=== PATIENT | male | born 1970 | race Caucasian/White ===

== ENCOUNTER 2024-02-26 00:23 | Emergency (ER) | payer OTHER, SELFPAY ==
[2024-02-26] VITALS (26 sets, daily range): BP systolic 127; BP diastolic 94; PULSE 100–120; TEMP 37.1; O2SAT 98–106; BMI 23.1
--- NOTE | 2024-02-26 00:40 | ECG_ITS ---
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
--- NOTE | 2024-02-26 00:54 | ED_ITS ---
HPI - Medical Clearance General Chief complaint: Medical Clearance Stated complaint: MEDICAL CLEARANCE Time Seen by Provider: 02/26/24 00:40 Source: patient Mode of arrival: walk-in History of Present Illness HPI Narrative: This 53-year-old male with a history of liver cirrhosis and alcohol dependence is sent to the emergency department from [facility] for medical clearance. The patient states that he is checking himself in the [facility] to get help with his alcoholism. Before going to the facility he drank a bottle of vodka. Upon arrival to the facility he was noted to be too intoxicated to do their intake and he was sent to this emergency department for evaluation. The patient has what appears to be somewhat advanced cirrhosis with ascites. In addition to medical clearance he request paracentesis while he is in the emergency department. Related Information Home Medications ?Medication ?Instructions ?Recorded ?Confirmed buspirone 10 mg tablet 10 mg PO .once daily 02/26/24 02/26/24 folic acid .ROUTE 02/26/24 furosemide 40 mg tablet 40 mg PO DAILY 02/26/24 02/26/24 spironolactone 50 mg tablet 50 mg PO DAILY 02/26/24 02/26/24 Allergies Allergy/AdvReac Type Severity Reaction Status Date / Time No Known Drug Allergies Allergy Verified 02/26/24 00:36 Review of Systems ROS Status of ROS 10 or more systems reviewed and unremark able except as noted in history and below Exam Narrative Exam Narrative: Vital signs and Nursing Notes reviewed: Patient is afebrile, he is tachycardic with a pulse of 120, blood pressure is mildly elevated at 127/94, he is not hypoxic with pulse ox of 98% on room air General: Intoxicated male, no respiratory distress-patient refuses to answer my questions HEENT: Normocephalic atraumatic, mucous membranes are moist and pink, eyes are clear, normal conjunctiva Neck: Supple, no meningeal signs, no anterior or posterior cervical lymphadenopathy Chest: Lungs are clear to auscultation with good air entry, there is no wheezing rhonchi or rales appreciated no accessory muscle use, patient is speaking in complete sentences-no chest wall tenderness to palpation CVS: Regular rate and rhythm S1-S2, no murmurs rubs or gallops, pulses are brisk and equal bilaterally ABD: Softly distended with fluid wave, no rebound guarding or rigidity noted Extremities: Moving all extremities, no lower extremity tenderness or swelling noted, negative Homans' sign, pulses are brisk and equal bilaterally Skin: Normal in appearance without rash,pallor, petechiae or purpura Neuro: No focal deficits, intoxicated, ambulatory, moving all extremities Constitutional Vital Signs, click to edit/add: Last Vital Signs Temp 98.8 F 02/26/24 00:32 Pulse 103 H 02/26/24 04:30 Resp 14 02/26/24 05:22 BP 127/94 H 02/26/24 00:51 Pulse Ox 98 02/26/24 00:32 O2 Del Method Room Air 02/26/24 00:32 Course Vital Signs Vital signs: Vital Signs Temperature 98.8 F 02/26/24 00:32 Pulse Rate 120 H 02/26/24 00:32 Respiratory Rate 18 02/26/24 00:32 Blood Pressure 127/94 H 02/26/24 00:32 Pulse Oximetry 98 02/26/24 00:32 Oxygen Delivery Method Room Air 02/26/24 00:32 Temperature 98.8 F 02/26/24 00:32 Pulse Rate 103 H 02/26/24 04:30 Respiratory Rate 14 02/26/24 05:22 Blood Pressure 127/94 H 02/26/24 00:51 Pulse Oximetry 98 02/26/24 00:32 Oxygen Delivery Method Room Air 02/26/24 00:32 MDM - Medical Clearance MDM Narrative Medical decision making narrative: This 53-year-old male with a history of alcoholism and cirrhosis is brought to the emergency department from [facility] for medical clearance. The patient admits that he was checking himself into [facility] yesterday because he wants help with his alcohol use but before checking and he drank a bottle of vod ka. When they were trying to do his intake he was too intoxicated and he was sent to the emergency department. Upon arrival he was notably intoxicated. Vital signs were stable but he was tachycardic. EKG upon arrival was a sinus tachycardia. An IV was placed and he was medicated with IV fluids and routine labs were ordered. His alcohol was 402. Potassium was 2.9. The remainder of his labs were normal with the exception of a mild elevation in his liver function enzymes; AST and alk phos. Total bilirubin is normal. He was given IV fluids and 20 mill equivalents of IV potassium. He was able to sleep throughout the night and on reevaluation he is alert, eating a pop tart and drinking water without difficulty and will be given a dose of oral potassium and discharged back to [facility] for further evaluation and treatment for his alcoholism. Lab Data Attestation: I reviewed the patient's lab results. Labs: Lab Results 02/26/24 Range/Units 00:49 WBC 10.6 (4.0-11.0) 10^3/uL RBC 4.55 L (4.70-6.10) 10^6/uL Hgb 14.4 (14.0-18.0) g/dL Hct 43.3 (42.0-54.0) % MCV 95.2 H (80.0-94.0) fL MCH 31.6 (25.9-34.0) pg MCHC 33.3 (29.9-35.2) g/dL RDW 15.1 H (11.0-15.0) % Plt Count 180 (150-450) 10^3/uL MPV 9.7 (9.5-13.5) fL Neut % (Auto) 53.1 (43.0-75.0) % Lymph % (Auto) 38.2 (20.5-60.0) % Harper % (Auto) 6.1 (1.7-12.0) % Eos % (Auto) 1.2 (0.9-7.0) % Baso % (Auto) 1.0 (0.2-2.0) % Neut # (Auto) 5.6 (1.4-6.5) 10^3/uL Lymph # (Auto) 4.0 H (1.2-3.8) 10^3/uL Harper # (Auto) 0.7 (0.3-0.8) 10^3/uL Eos # (Auto) 0.1 (0.0-0.7) 10^3/uL Baso # (Auto) 0.1 (0.0-0.1) 10^3/uL Abs Immat Gran (auto) 0.04 H (0.00-0.03) 10^3/uL Imm/Tot Granulo (auto) 0.4 (0.0-0.5) % Sodium 141 (136-145) mmol/L Potassium 2.9 L* (3.5-5.1) mmol/L Chloride 99 (98-107) mmol/L Carbon Dioxide 28.6 (21.0-32.0) mmol/L Anion Gap 16.3 BUN 12.0 (7.0-18.0) mg/dL Creatinine 0.76 (0.70-1.30) mg/dL Est GFR ( Amer) >60 (>=60) Est GFR (Non-Af Amer) >60 (>=60) BUN/Creatinine Ratio 15.8 Glucose 104 (74-106) mg/dL Calcium 9.4 (8.5-10.1) mg/dL Total Bilirubin 0.8 (0.2-1.0) mg/dL AST 115 H (15-37) U/L ALT 60 (16-63) U/L Alkaline Phosphatase 300 H (46-116) U/L Total Protein 8.2 (6.4-8.2) g/dL Albumin 3.7 (3.4-5.0) g/dL Globulin 4.5 g/dL Albumin/Globulin Ratio 0.8 Ethanol Quant 402 mg/dL ECG Data Attestation: I personally reviewed and interpreted this ECG as follows: (Sinus tachycardia at 108 bpm, left axis deviation, nonspecific ST changes, no acute ST segment elevation or T wave inversion) Discharge Plan Discharge Stand Alone Forms: Work/School Release, Portal Instructions Chief Complaint: Medical Clearance Clinical Impression: Alcohol intoxication, Hypokalemia Patient Disposition: Home, Self-Care Time of Disposition Decision: 06:11 Condition: Good Prescriptions / Home Meds: No Action furosemide 40 mg tablet 40 mg PO DAILY spironolactone 50 mg tablet 50 mg PO DAILY folic acid .ROUTE buspirone 10 mg tablet 10 mg PO .once daily Print Language: Malagasy Instructions: Hypokalemia (ED), Alcohol Intoxication (ED), Alcohol Use Disorder (ED) Referrals: Physician,Non-Staff, MD [Primary Care Provider] - 1 week
--- NOTE | 2024-02-26 00:57 | PC.NURSE ---
Pt presents to ER from [facility] facility. Pt arrived there on his own for treatment The facility called the ER and stated they were sending him here for medical clearance as he was too intoxicated to admit to their facility Pt states he drank an entire bottle of Vodka on 02/25/24 and does this daily Pt's abdomen is large and round, states he has a history of cirrhosis and ascites and has had to have his abdomen drained 5 times in the last year Pt states he willingly took himself to [facility] as he knows he needs help Pt has no symptoms of withdrawal at this time
[2024-02-26 01:04] LABS: Basophils Absolute Auto 0.1 10^3/uL (0.0-0.1); Eosinophils Absolute Auto 0.1 10^3/uL (0.0-0.7); Eosinophils Percent Auto 1.2 % (0.9-7.0); Hematocrit 43.3 % (42.0-54.0); Hemoglobin 14.4 g/dL (14.0-18.0); Immature Granulocytes Abs Auto 0.04 10^3/uL (0.00-0.03); Immature Granulocytes Pct Auto 0.4 % (0.0-0.5); Lymphocytes Percent Auto 38.2 % (20.5-60.0); Mean Corpuscular HGB Conc 33.3 g/dL (29.9-35.2); Mean Corpuscular Hemoglobin 31.6 pg (25.9-34.0); Mean Corpuscular Volume 95.2 fL (80.0-94.0); Mean Platelet Volume 9.7 fL (9.5-13.5); Monocytes Absolute Auto 0.7 10^3/uL (0.3-0.8); Monocytes Percent Auto 6.1 % (1.7-12.0); Neutrophils Absolute Auto 5.6 10^3/uL (1.4-6.5); Neutrophils Percent Auto 53.1 % (43.0-75.0); Platelet Count 180 10^3/uL (150-450); Red Blood Count 4.55 10^6/uL (4.70-6.10); Red Cell Distribution Width 15.1 % (11.0-15.0); White Blood Count 10.6 10^3/uL (4.0-11.0)
[2024-02-26 01:22] LABS: Alanine Aminotransferase 60 U/L (16-63); Albumin Globulin Ratio 0.8; Albumin Level 3.7 g/dL (3.4-5.0); Alkaline Phosphatase 300 U/L (46-116); Anion Gap 16.3; Aspartate Amino Transferase 115 U/L (15-37); BUN Creatinine Ratio 15.8; Bilirubin Total 0.8 mg/dL (0.2-1.0); Calcium 9.4 mg/dL (8.5-10.1); Carbon Dioxide 28.6 mmol/L (21.0-32.0); Chloride 99 mmol/L (98-107); Estimated GFR (African America >60 (>=60); Estimated GFR (Non-African Ame >60 (>=60); Ethanol 402 mg/dL; Globulin 4.5 g/dL; Glucose 104 mg/dL (74-106); Sodium 141 mmol/L (136-145); Total Protein 8.2 g/dL (6.4-8.2)
[2024-02-26 01:26] LABS: Potassium 2.9 mmol/L (3.5-5.1)
[2024-02-26] MEDS: 0.9 % SODIUM CHLORIDE 500 ML IV (01:26)
[2024-02-26] MEDS: 0.9 % SODIUM CHLORIDE 1,000 ML 125 ML IV (02:52)
[2024-02-26] MEDS: POTASSIUM CHLORIDE 20 MEQ in 0.9 % SODIUM CHLORIDE 250 ML 130 MEQ IV (02:53)
--- NOTE | 2024-02-26 05:54 | PC.NURSE ---
[facility] called for update on patient. Update provided and [facility] will be notified when patient is ready for discharge.
--- NOTE | 2024-02-26 06:18 | PC.NURSE ---
[facility] contacted by this RN to inform them of patient ready for discharge. RN at [facility] provided update on patient status. 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.
[2024-02-26] MEDS: POTASSIUM CHLORIDE 10 MEQ ER TABLET 20 MEQ PO (06:28)
== END 2024-02-26 06:59 | disposition home or self-care (01) ==
PROVIDERS: Emergency Provider Emergency Medicine
DX: F10.229 Alcohol dependence with intoxication, unspecified (principal); E87.6 Hypokalemia; Y90.8 Blood alcohol level of 240 mg/100 ml or more; K74.60 Unspecified cirrhosis of liver
CPT/HCPCS: 36415; 80053; 80320; 85025; 93005; 96365; 96366; 99284; J3480